=== PATIENT | female | born 1970 | race Caucasian/White ===

== ENCOUNTER → 2016-06-19 | Outpatient (CLI) | payer OTHER ==
[~2016-06-19] MED LIST: AMOX500T PO; ANAS1TAB19 PO; BIOT1CAP8 PO; CETI10TA10 PO; CHOL1000 PO; IBUP-1050 PO; MISCCAP80 PO; OMEG10007 PO; OXYC-57 PO; PSEU30TA20 PO; PSEUCAP67 PO; RIZA5TAB10 PO
--- NOTE | 2016-06-19 15:49 | MAMMOGRAPHY REPORT ---
BILATERAL DIGITAL DIAGNOSTIC MAMMOGRAM TOMOSYNTHESIS WITH CAD AND TARGETED LEFT ULTRASOUND: 06/19/2016 CLINICAL HISTORY: 45-year-old woman with a history of previous benign breast surgeries, with a papil cammy diagnosed at final pathology in 2009, presents with a new palpable lump in the 11:00 left breas t. TECHNIQUE: Bilateral breast tomosynthesis in addition to standard 2D mammography was performed. Curr ent study was also evaluated with a Computer Aided Detection (CAD) system. COMPARISON: Comparison is made to exams dated: 10/20/2014 mammogram, 04/19/2013 mammogram, 09/27/2011 m ammogram - [facility], 05/23/2010 [facility], and 03/10/2008. BREAST COMPOSITION: The tissue of both breasts is heterogeneously dense, which may obscure small ma sses. FINDINGS: Within the right breast, there is a cluster of microcalcifications in the upper outer mid dle one third of the breast measuring 7.6 mm in maximum dimension. These calcifications appear smud gy on the CC view but do not demonstrate layering on the current MLO view. However, spot magnificat ion views from 10/20/2014 are available, which demonstrate tea cupping or layering of most of these microcalcifications on the spot magnification ML view, suggesting benign milk of calcium. This clus ter of microcalcifications has been present dating back to 2012 but was not clearly seen on the 2009 exam, but with the amount of layering on the prior spot magnification view is considered benign. N o new suspicious mass, architectural distortion or cluster of microcalcifications is seen within the right breast. Within the left breast superiorly, there are multiple partially circumscribed and obscured masses. A dry angular skin palpable marker overlies the 11:00 to 12:00 breast, denoting the new palpable mas s. In the area of concern, there is a 16 mm rounded circumscribed mass that is new. Targeted ultra sound was subsequently performed. At least 7 other partially circumscribed masses in the superior l eft breast appear increased comparing to prior available mammograms and therefore ultrasound was per formed throughout the entire left breast. No focal area of architectural distortion or a cluster of new suspicious my calcifications is seen in the left breast. There are scattered and grouped stabl e microcalcifications. Real-time high-resolution ultrasound was performed in the left breast. In the area of new palpable concern pointed out by the patient (11:00 left breast, 6 cm from the nipple) there is a rounded circ umscribed mass with posterior acoustic enhancement. It is mixed anechoic with layering echogenic de bris within, measuring 14.2 x 11.8 x 14.8 mm. This could represent a complicated cyst with layering debris or possibly a cyst with internal hemorrhage. Given its new palpable nature, further evaluat ion with cyst aspiration is recommended to exclude the possibility of a solid component. The left 1 1:00 breast, 5 cm from the nipple, there is a lobulated anechoic cyst with posterior acoustic enhanc ement, measuring 9.9 x 8.0 x 9.2 mm. In the 11:00 left breast, 3 cm from the nipple, there is a lob ulated isoechoic solid-appearing mass that measures 9.8 x 6.1 x 8.7 mm. Another irregular hypoechoi c mass with a few internal cysts is seen in the 11:00 left breast, 2 cm from the nipple, measuring 7 .2 x 5.6 x 6.1 mm. An isoechoic circumscribed solid mass is seen in the 11:00 left breast, 1 cm fro m the nipple, measuring 7.3 x 5.5 x 6.9 mm. Mild increased vascularity is demonstrated. A predomina ntly cystic multilobulated mass is seen in the 12:00 left breast, 4 cm from the nipple, measuring ap proximately 9.7 x 6.5 x 7.8 mm. 2 abutting anechoic simple cysts are seen in the left 12:00 breast, to 7 m from the nipple, measuring 12.1 x 9.0 x 10.1 mm. Another isoechoic to hypoechoic solid mass with mild internal vascularity is seen in the 10:00 left breast, 2 cm from the nipple, measuring 7. 4 x 5.6 x 7.0 mm. A smaller similar appearing hypoechoic solid mass is identified in the 10:00 left breast, 3 cm from the nipple, measuring 3.2 x 2.7 x 2.3 mm. Another isoechoic solid-appearing mass with internal vascularity is identified in the 10:00 left breast, 6 cm from the nipple, with in ane choic crescent, suggesting this represents an intracystic mass. IMPRESSION: ACR BI-RADS CATEGORY 4B: INTERMEDIATE SUSPICION FOR MALIGNANCY, TARGETED ULTRASOUND ACR BI-RADS CATEGORY 4B: INTERMEDIATE SUSPICION FOR MALIGNANCY There are multiple cystic and solid masses within the left superior breast, that are increasing in s ize comparing to prior mammograms. The patient is feeling a new mass in the 11:00 axis that has the sonographic appearance of a [place] located cyst or cyst with internal hemorrhage. Given its interva l development and palpable nature, definitive characterization with ultrasound guided cyst aspiratio n is recommended to exclude an internal solid component. At the time of cyst aspiration, ultrasound guided core needle biopsy is recommended for the probable intracystic mass in the 10:00 left breast , 6 cm from the nipple, with fluid crescent seen along the periphery as well as the largest solid-ap pearing mass in the 11:00 left breast, 3 cm from the nipple. Pending benign pathology results, j carlos d follow the other solid appearing masses in 6 months. These findings could represent papillomatosi s, particularly given the patient had a previous left breast surgical excision for a biopsy-proven p apilloma. These results and recommendations were discussed with the patient at the time of the exam. She tent atively scheduled the left breast cyst aspiration and ultrasound guided core needle biopsy 2 prior to leaving our department. Approximately 10% of breast cancers are not detected with mammography. A negative mammographic repor t should not delay biopsy if a clinically suggestive mass is present. Jocelyn Potter M.D. ay/:06/19/2016 12:35:55 Industrial Cook: Tori Goodman RT(R)(M), [facility] letter sent: Abnormal 4/5 BI-RADS Code: ACR BI-RADS Category 4B: Intermediate Suspicion For Malignancy Ultrasound BI-RADS: AC R BI-RADS Category 4B: Intermediate Suspicion For Malignancy
== END | disposition home or self-care (01) ==
LOC: C.MAMM 10:58
PROVIDERS: ATTEND Obstetrics & Gynecology
DX: N63 Unspecified lump in breast (principal)

== ENCOUNTER → 2016-06-26 | Outpatient (CLI) | payer OTHER ==
--- NOTE | 2016-06-26 09:45 | Discharge Instructions ---
Discharge Instructions Procedure Procedure Date: Jun 26, 2016. Reason for visit: Left Masses Core X2 1 Aspiration. Discharge Discharge Date: Jun 26, 2016. Discharge Diagnosis: post left breast ultrasound guided core biopsy x 2 and cyst aspiration x 1 Instructions Activity Recommendations: Additional Limitations (see below) Return to School/Work: no limitations Recommended Home Diet: No Limitations Provider Instructions: ACTIVITY RECOMMENDATIONS: * No lifting, pushing, pulling or exercising the affected side for three days. RETURN TO SCHOOL/WORK: * You may return to work/school after the procedure, but do not perform any strenuous activities for 24 to 48 hours. MEDICATIONS: * Tylenol (two 325 mg) every four to six hours if needed for mild pain (if not allergic to Tylenol). DIET: * Resume previous diet. SPECIAL CARE INSTRUCTIONS: * Keep biopsy site dry for 24 hours. May shower after 24 hours, but do not soak (bathe) incision. * May remove Tegaderm (plastic patch) tomorrow AFTER showering. * Leave the steri-strips on for one week. Allow the steri-strips to fall off by themselves. If not off after one week, you may remove them. You may place a Bandaid crosswise over the strips, if desired. * Apply ice 10 minutes on and 10 minutes off as needed. * Wear a bra at bedtime to sleep more comfortably for 2-3 days. * Your referring physician should have the results after approximately 5 to 7 business days. * Call for unusual bleeding, fever, drainage, etc or if you have any questions call [phone] during normal business hours or after hours call Dr Potter, . FOLLOW UP VISIT: Follow-up with Referring Physician as scheduled. Allergies Coded Allergies: No Known Allergies (Verified , 06/05/16) Lizabeth Reagan Recommendations: Call your doctor if: * Temperature above 101 degrees * Pain not relieved by pain medicine ordered * There is increased drainage or redness from any incision * You have any unanswered questions or concerns. Your Doctors Instructions noted above were prepared by provider Jocelyn Potter. Patient Signature Section: Patient Instructions Signature Page Lizbet Chavez Patient (or Guardian) Signature/Date: I have read and understand the instructions given to me by my caregivers. Caregiver/RN/Doctor Signature/Date: The above-named patient and/or guardian has received patient instructions on this date. + Original Patient Signature Page (only) stays with chart. Please make copy for patient.
--- NOTE | 2016-06-26 14:54 | MAMMOGRAPHY REPORT ---
ASPIRATION: 06/26/2016 CLINICAL HISTORY: Palpable cyst with internal layering debris level, possibly a cyst that hemorrhage d; patient presents for ultrasound-guided cyst aspiration. Please refer to the report from left breast ultrasound-guided core biopsy performed at the same time for full detail. IMPRESSION: ASPIRATION Please refer to the report from left breast ultrasound-guided core biopsy performed at the same time for full detail. Jocelyn Potter M.D. ay/:06/26/2016 09:46:42 Telecom Coordinator: Lacy CARTER(R)(M), [facility]
--- NOTE | 2016-06-26 14:54 | MAMMOGRAPHY REPORT ---
MULTIPLE ULTRASOUND GUIDED BIOPSIES LEFT BREAST: 06/26/2016 CLINICAL HISTORY: Palpable mass in the 11:00 left breast as well as indeterminate solid-appearing ma sses seen within the left superior breast on ultrasound. Patient presented for ultrasound-guided cy st aspiration of the palpable mass as well as ultrasound guided core biopsy of the largest solid mas s in the 11:00 axis and possible intracystic solid mass in the 10:00 axis. COMPARISON: Comparison is made to exams dated: 06/19/2016 ultrasound, 06/19/2016 mammogram - [facility], 04/19/2013 mammogram, 10/09/2011 mammogram, 09/27/2011 mammogram - [facility], and 05/23/2010 specimen - [facility]. PATIENT CONSENT: The procedure, risks and benefits were discussed with the patient and informed writ ten consent was obtained. Specific risks to this procedure include: bleeding, infection, puncture of adjacent structure, nontarget biopsy, sampling error and medication reaction. PROCEDURE DESCRIPTION: First repeat targeted ultrasound was performed in the 10:00 and 11:00 axes of the left breast. The complicated cyst with internal layering debris level was again identified in the 11:00 axis. Slightly closer to the nipple a lobulated parallel hypoechoic solid mass was seen. Also in the 10:00 breast a probable intracystic solid mass is again seen. All of these masses are the intended targets for ultrasound-guided cyst aspiration and core needle biopsy 2. A time out was performed and the left breast was agreed as the site of biopsy. The skin was prepped and draped in the usual sterile fashion. First the cystic-appearing palpable mass in the 11:[address] was identified. 1% buffered lidocaine without epinephrine was administered as local anesthesia. A 22-gauge needle was advanced into the mass and aspiration was performed. Brownish old blood ting ed fluid was aspirated and sent to the pathology department for cytologic analysis. After aspiratio n there is minimal residual hypoechoic tissue at the site of aspiration, likely representing an infl alberto wall of the cyst. Then the solid lobulated mass in the 11:00 left breast was identified and targeted for biopsy. Anil tional 1% buffered lidocaine with and without epinephrine was administered as local anesthesia. A s mall incision was made in the skin. Through the incision, using a 14-gauge achieve biopsy device, 3 samples were obtained. A ribbon-shaped metallic biopsy marker was placed at the site of this mass. Hemostasis was achieved after manual compression. Then the probable intracystic solid mass in the 10:00 left breast was identified and chosen as targe t for biopsy. Additional subcutaneous and intraparenchymal 1% buffered lidocaine with and without e pinephrine was administered as local anesthesia. A skin incision was made. Through the incision, 3 samples were taken with a 14 gauge Achieve biopsy device. A wing shaped metallic marker was placed a t the biopsy site. Hemostasis was achieved after manual compression. The patient tolerated the proce dure well and there was no immediate complication. All of the samples were sent to the pathology de partment in appropriately labeled containers. Post procedure left CC, XCCM and ML views were obtained. There is decreased density but persistent faint rim of the aspirated cyst with probable internal hemorrhage that was palpable in the 11:00 lef t breast. The ribbon-shaped metallic biopsy marker is identified in the middle one third of the lef t upper outer quadrant. However, the wing shaped metallic biopsy marker is not visualized, likely d ue to to the far medial and far superior location. No significant postbiopsy hematoma is identified . Numerous other circumscribed masses are scattered throughout the superior left breast. IMPRESSION: ULTRASOUND GUIDED BIOPSY Status post ultrasound-guided cyst aspiration of a palpable cystic mass in the 11:00 left breast, an d status post ultrasound-guided core biopsy 2 in the 10:00 and 11:00 left breast, with biopsy marke rs placed at each site. Pending benign pathology results, follow-up left mammography and repeat ultrasound is recommended to ensure stability of numerous other similar appearing solid masses as well as other cysts. Jocelyn Potter M.D. ay/:06/26/2016 12:39:47 Circuit Tester: Lacy LUIS)(Jackie), [facility]
--- NOTE | 2016-06-26 14:56 | MAMMOGRAPHY REPORT ---
UNILATERAL LEFT DIGITAL DIAGNOSTIC MAMMOGRAM: 06/26/2016 CLINICAL HISTORY: Status post left breast cyst aspiration and ultrasound-guided core needle biopsy 2. Please refer to the report from left breast ultrasound guided core biopsy performed at the same time for full detail. IMPRESSION: POST PROCEDURE IMAGING FOR MARKER PLACEMENT Please refer to the report from left breast ultrasound guided core biopsy performed at the same time for full detail. Approximately 10% of breast cancers are not detected with mammography. A negative mammographic repor t should not delay biopsy if a clinically suggestive mass is present. Jocelyn Potter M.D. ay/:06/26/2016 12:27:55 Manager Animal: Lacy CARTER(R)(M), [facility] BI-RADS Code: Post Procedure Imaging For Marker Placement
== END | disposition home or self-care (01) ==
LOC: C.MAMM 08:38
PROVIDERS: ATTEND Obstetrics & Gynecology
DX: D05.12 Intraductal carcinoma in situ of left breast (principal)

== ENCOUNTER → 2016-08-31 | Outpatient (CLI) | payer OTHER ==
--- NOTE | 2016-08-31 14:09 | DIAGNOSTIC IMAGING REPORT ---
LEFT BREAST LYMPHOSCINTIGRAPHY CLINICAL HISTORY: Left breast cancer. COMPARISON STUDY: Diagnostic left mammogram June 26, 2016. PROCEDURE: The patient presents today for left breast lymphoscintigraphy. The procedure, risks and benefits were discussed with the patient and informed consent was obtained. The procedure was performed by Dr. Taveras following a timeout. Skin of the upper left breast was prepped. A total of 0.564 mCi of Lymphoseek was injected in 5 intradermal aliquots within the upper outer quadrant of the left breast, as directed, at 1:35 PM on August 31, 2016. The patient tolerated the procedure well and no immediate complications were evident. No imaging was requested at this time. IMPRESSION: Left breast lymphoscintigraphy. Electronically signed by: Albaro Taveras M.D. 08/31/2016 2:07 PM Dictated Date/Time: 08/31/2016 2:06 PM
== END | disposition home or self-care (01) ==
LOC: C.NUCL 13:23
PROVIDERS: ATTEND Surgery
DX: C50.912 Malignant neoplasm of unspecified site of left female breast (principal)

== ENCOUNTER → 2016-12-21 | Outpatient (CLI) | payer OTHER ==
[~2016-12-21] MED LIST changes: -AMOX500T PO; -OXYC-57 PO; -PSEU30TA20 PO; -PSEUCAP67 PO
== END | disposition home or self-care (01) ==
LOC: C.MAMM 15:41
PROVIDERS: ATTEND Internal Medicine Hematology & Oncology
DX: C50.212 Malignant neoplasm of upper-inner quadrant of left female breast (principal); M85.851 Other specified disorders of bone density and structure, right thigh; M85.852 Other specified disorders of bone density and structure, left thigh

== ENCOUNTER → 2017-01-09 | Outpatient (CLI) | payer OTHER ==
--- NOTE | 2017-01-09 13:32 | MAMMOGRAPHY REPORT ---
UNILATERAL LEFT DIGITAL DIAGNOSTIC MAMMOGRAM TOMOSYNTHESIS WITH CAD AND TARGETED LEFT ULTRASOUND: 12/17 CLINICAL HISTORY: 46-year-old woman presents to establish new baseline after treatment for left breas t cancer. She underwent breast conservation therapy with a lumpectomy and radiation. TECHNIQUE: Left CC and MLO 2-D and tomosynthesis images, spot magnification left CC and ML views were obtained. Current study was also evaluated with a Computer Aided Detection (CAD) system. COMPARISON: Comparison is made to exams dated: 06/26/2016 mammogram, 06/19/2016 mammogram - [facility], 10/20/2014 mammogram, 04/19/2013 mammogram, 10/09/2011 mammogram, and 09/27/2011 mammogr am - [facility]. BREAST COMPOSITION: The tissue of the left breast is heterogeneously dense, which may obscure small masses. FINDINGS: There is focal asymmetry, expected architectural distortion and 6 surgical clips in the up per inner middle and posterior left breast, denoting the surgical bed. None of the previously observ ed multiple masses in the superior left breast are currently seen, presumably all surgically excised. However, a wing-shaped metallic biopsy marker clip remains in the upper inner quadrant of the left breast, only visualized on the spot magnification views. Further evaluation with ultrasound was perf ormed to assess for this biopsy marker clip. Additional ultrasound was also performed throughout the remainder of the left breast to assess for any residual masses. There is no unexpected architectura l distortion or suspicious microcalcifications. Real-time high-resolution ultrasound was performed throughout the left breast with particular attenti on to the 10:00 and 11:00 axes in the area of previously biopsied mass in the 10:00 breast in which t he wing-shaped metallic biopsy marker clip was placed. This yielded a papillary lesion with ADH duri ng ultrasound-guided core biopsy. However, no discrete solid or cystic mass is seen throughout the l eft breast on ultrasound. A small postsurgical seroma and/or evolving hematoma is seen at the surgic al site in the 11:00 axis. IMPRESSION: ACR BI-RADS CATEGORY 4: SUSPICIOUS, TARGETED ULTRASOUND ACR BI-RADS CATEGORY 4: SUSPICIO US 1. There are expected post-therapeutic changes in the left breast. 2. A wing-shaped metallic biopsy marker clip remains in the left breast, and this originally denoted a site of biopsy-proven atypia within a papilloma. Upon further evaluation with ultrasound and also mammographically there is no evidence of a residual mass and the biopsy marker clip is not visible o n ultrasound. Ideally, mammographic guided needle localization and excision of this clip would ensur e definitively on final pathology that there is no residual atypia residing at this site, even though the mass has either been removed or resolved after treatment. Otherwise, can continue to follow wit h imaging to ensure no new mass develops here. Would also then consider additional surveillance with breast MRI in addition to mammograms and ultrasound. 3. Patient is due for bilateral mammography in 6 months. These results and recommendations were discussed with the patient at the time of the exam. Approximately 10% of breast cancers are not detected with mammography. A negative mammographic report should not delay biopsy if a clinically suggestive mass is present. Jocelyn Potter M.D. ay/:01/09/2017 12:21:12 Agricultural Lender: Tori CARTER(Alessandra)(M), [facility] letter sent: Abnormal 4/5 BI-RADS Code: ACR BI-RADS Category 4: Suspicious Ultrasound BI-RADS: ACR BI-RADS Category 4: Suspici ous
== END | disposition home or self-care (01) ==
LOC: C.MAMM 09:31
PROVIDERS: ATTEND Surgery
DX: Z08 Encounter for follow-up examination after completed treatment for malignant neoplasm (principal); Z85.3 Personal history of malignant neoplasm of breast

== ENCOUNTER → 2017-01-09 | Outpatient (CLI) | payer OTHER ==
[2017-01-09 15:27] VITALS: BP 106/59; PULSE 76; TEMP 36.9; O2SAT 96
--- NOTE | 2017-01-09 16:17 | Radiation Oncology Follow-Up ---
Radiation Oncology Follow-Up Date of Visit Jan 09, 2017. (Helen Clinton PA-C) Reason For Visit One-month follow-up and cancer survivorship care plan (Helen Clinton PA-C) Radiation Completion Date 12/04/16 (Helen Clinton PA-C) Diagnosis (1) Breast cancer Status: Acute Onset Date: 07/06/2016 Histology Subtype: ductal Stage: l Permanent Comment: Status post benign left breast biopsy 03/11/2004 Status post benign left breast biopsy 03/10/2008 Status post benign left breast biopsy 05/23/2010 Self detected left breast mass May 2016 Status post ultrasound-guided biopsy 06/26/2016 revealing DCIS Status post lumpectomy 07/06/2016 revealing invasive mammary ductal carcinoma grade 1 Estrogen receptor positive, progesterone receptor positive, HER-2/isabelle negative Status post sentinel lymph node biopsy 09/01/2016 Stage pTIa [id number] Last Edited By: Helen Clinton on Sep 20, 2016 10:31 (Helen Clinton PA-C) History of Present Illness Ms. Valenzuela is a 46-year-old female with a previous history of multiple negative biopsies in 2003, 2007 and 2009 that have only revealed intraductal papilloma with atypical ductal hyperplasia. In May 2016, the patient self palpated a left breast mass. The patient did have a bilateral diagnostic mammogram with tomosynthesis as well as a left breast ultrasound on 06/19/2016 which revealed: "There are multiple cystic and solid masses within the left superior breast, that are increasing in size comparing to prior mammograms. The patient is feeling a new mass in the 11:00 axis that has the sonographic appearance of a [place] located cyst or cyst with internal hemorrhage. Given its interval development and palpable nature, definitive characterization with ultrasound guided cyst aspiration is recommended to exclude an internal solid component. At the time of cyst aspiration, ultrasound guided core needle biopsy is recommended for the probable intracystic mass in the 10:00 left breast , 6 cm from the nipple, with fluid crescent seen along the periphery as well as the largest solid-appearing mass in the 11:00 left breast, 3 cm from the nipple. Pending benign pathology results, could follow the other solid appearing masses in 6 months. These findings could represent papillomatosis, particularly given the patient had a previous left breast surgical excision for a biopsy-proven papilloma. These results and recommendations were discussed with the patient at the time of the exam. She tentatively scheduled the left breast cyst aspiration and ultrasound guided core needle biopsy 2 prior to leaving our department. Approximately 10% of breast cancers are not detected with mammography. A negative mammographic report should not delay biopsy if a clinically suggestive mass is present." She underwent a ultrasound-guided biopsy of the left breast mass on 06/26/2016 which confirmed low-grade ductal carcinoma in situ that is estrogen receptor positive and progesterone receptor positive. The patient was subsequently seen by Dr. Joao Bustamante who discussed treatment options including a mastectomy or lumpectomy followed by adjuvant radiation therapy with consideration of chemotherapy. The patient ultimately elected for a lumpectomy and underwent the procedure on 07/06/2016 which revealed invasive mammary carcinoma that was grade 1 of 3; there is no evidence of ductal carcinoma in situ or lymphovascular space invasion and the tumor was estrogen receptor positive, progesterone receptor positive and HER-2 negative. The margins were negative and the tumor measured 2 mm in the greatest dimension. Dr. Rogel to the patient back to the operating room on 09/01/2016 for a sentinel lymph node biopsy and both sentinel lymph nodes were negative for metastatic carcinoma. The patient did also have genetic testing for BRCA mutation which was negative. The patient was seen in consultation by Dr. Tate Corral for medical oncology who recommended consideration for adjuvant radiation therapy and anti-hormonal therapy for 5-10 years. We are now seeing the patient in consultation discuss the role of radiation therapy. She was treated with conventional radiation therapy. Her treatment was completed 12/04/2016. She received 6640 cG (Helen Clinton PA-C) Interim History She has been doing well over the past month. The skin irritation resolved without difficulty. She denies any pain or discomfort in the breast. No discomfort of the chest wall. She has noticed no change in the axilla. She has seen Dr. Corral and was started on Arimidex. She does have cause hot flashes. She is taking the recommended peppermint tea and vitamin E. She denies joint pain or discomfort. Mammogram was ordered and completed on 2016. The mammogram revealed expected post-therapeutic changes in the breast. He wing shaped metallic biopsy marker clip remains in left breast, and this originally did noted a site of biopsy proven atypia with a papilloma. Upon further evaluation with ultrasound and also mammographically there is no evidence of residual mass and the biopsy marker clip is not visible on the ultrasound. Ideally mammographic guided needle localization and excision of this clip would ensure definitively on final pathology that there is no residual atypia residing at this site, even though the mass has either been removed or resolved after therapy. Otherwise can continue to follow with imaging to ensure no new masses develop here. We will also consider additional surveillance with breast MRI in addition to the mammogram and ultrasound. She' ll be due for bilateral mammography in 6 months. (Helen Clinton PA-C) Allergies Coded Allergies: No Known Allergies (Verified , 06/05/16) Home Medications Scheduled Anastrozole (Arimidex), 1 TAB PO DAILY Biotin (Biotin), 1 CAP PO DAILY Cetirizine Hcl (Zyrtec), 1 TAB PO BID Cholecalciferol (Vitamin D3), 1 TAB PO BID Fish Oil ([place]-3), 2 CAP PO BID Probiotic Product (Probiotic), 1 CAP PO DAILY Scheduled PRN Ibuprofen (Advil), 200-600 MG PO Q4H PRN for Pain Rizatriptan Benzoate (Maxalt), 5 MG PO BID PRN for Migraine Review of Systems Gastrointestinal: Symptoms: WNL Oral: Symptoms: No Problems Respiratory: Symptoms: WNL Urinary: Symptoms: WNL Skin: Symptoms: Faint Erythema Other Skin Symptoms: slightly pink (Helen Clinton PA-C) Physical Exam Vital Signs Date Time Temp Pulse Resp B/P (MAP) Pulse Ox O2 Delivery O2 Flow Rate FiO2 01/09/17 15:27 36.9 76 18 106/59 96 Pain: Patient Pain Scale: 0 - 10 Initial Pain Intensity: 0.0 Fatigue: None General Appearance: no apparent distress Eyes: normal inspection, EOMI ENT: normal ENT inspection, hearing grossly normal Neck: no adenopathy, thyroid normal Respiratory/Chest: lungs clear, no respiratory distress, no accessory muscle use Breast: Breast examination reveals very slight hyperpigmentation of the left breast. There are no masses or tenderness and no axillary adenopathy. There are no skin retractions or nipple changes. She has no axillary adenopathy. Using the [place] score cosmesis she has a in excellent outcome. The right breast showed no masses or tenderness and no axillary adenopathy. Cardiovascular: regular rate, rhythm, no gallop, no murmur Abdomen: non tender, soft Extremities: no pedal edema Neurologic/Psychiatric: normal mood/affect Skin: warm/dry Lymphatic: no adenopathy (Helen Clinton PA-C) Additional Studies Patient: MARC VALENZUELA [facility] Rec: [id number] Address1: [address] Address2: Acct ID: [id number] Date: 1970 Sex: F Ref Phy: Joao Bustamante M.D. Att Phy: Joao Bustamante M.D. Kirsten Phy: No Doctor, Assigned Inter Phy: Jocelyn Potter MD [facility] Zip: [place] [address] SC: .MAMM Report #: [id number] Evaluator Transfer Students: THOMAS Diagnosis: 6 MONTH F/U S/P LEFT BREAST SURGERY BASELINE Service Date: 01/09/17 MNE: [id number] Ordering Dr: Joao Bustamante M.D. CC: Joao Bustamante M.D. CONF: DICTATED BY: Jocelyn Potter MD MAMMOGRAPHY REPORT UNILATERAL LEFT DIGITAL DIAGNOSTIC MAMMOGRAM TOMOSYNTHESIS WITH CAD AND TARGETED LEFT ULTRASOUND: 01/09/2017 CLINICAL HISTORY: 46-year-old woman presents to establish new baseline after treatment for left breast cancer. She underwent breast conservation therapy with a lumpectomy and radiation. TECHNIQUE: Left CC and MLO 2-D and tomosynthesis images, spot magnification left CC and ML views were obtained. Current study was also evaluated with a Computer Aided Detection (CAD) system. COMPARISON: Comparison is made to exams dated: 06/26/2016 mammogram, 06/19/2016 mammogram - [facility], 10/20/2014 mammogram, 04/19/2013 mammogram, 10/09/2011 mammogram, and 09/27/2011 mammogram - [facility]. BREAST COMPOSITION: The tissue of the left breast is heterogeneously dense, which may obscure small masses. FINDINGS: There is focal asymmetry, expected architectural distortion and 6 surgical clips in the upper inner middle and posterior left breast, denoting the surgical bed. None of the previously observed multiple masses in the superior left breast are currently seen, presumably all surgically excised. However, a wing-shaped metallic biopsy marker clip remains in the upper inner quadrant of the left breast, only visualized on the spot magnification views. Further evaluation with ultrasound was performed to assess for this biopsy marker clip. Additional ultrasound was also performed throughout the remainder of the left breast to assess for any residual masses. There is no unexpected architectural distortion or suspicious microcalcifications. Real-time high-resolution ultrasound was performed throughout the left breast with particular attention to the 10:00 and 11:00 axes in the area of previously biopsied mass in the 10:00 breast in which the wing-shaped metallic biopsy marker clip was placed. This yielded a papillary lesion with ADH during ultrasound-guided core biopsy. However, no discrete solid or cystic mass is seen throughout the left breast on ultrasound. A small postsurgical seroma and/ or evolving hematoma is seen at the surgical site in the 11:00 axis. IMPRESSION: ACR BI-RADS CATEGORY 4: SUSPICIOUS, TARGETED ULTRASOUND ACR BI- RADS CATEGORY 4: SUSPICIOUS 1. There are expected post-therapeutic changes in the left breast. 2. A wing-shaped metallic biopsy marker clip remains in the left breast, and this originally denoted a site of biopsy-proven atypia within a papilloma. Upon further evaluation with ultrasound and also mammographically there is no evidence of a residual mass and the biopsy marker clip is not visible on ultrasound. Ideally, mammographic guided needle localization and excision of this clip would ensure definitively on final pathology that there is no residual atypia residing at this site, even though the mass has either been removed or resolved after treatment. Otherwise, can continue to follow with imaging to ensure no new mass develops here. Would also then consider additional surveillance with breast MRI in addition to mammograms and ultrasound. 3. Patient is due for bilateral mammography in 6 months. These results and recommendations were discussed with the patient at the time of the exam. Approximately 10% of breast cancers are not detected with mammography. A negative mammographic report should not delay biopsy if a clinically suggestive mass is present. Jocelyn Potter M.D. ay/:01/09/2017 12:21:12 Yard Spotter: Tori LUIS)(Jackie), [facility] letter sent: Abnormal 4/5 BI-RADS Code: ACR BI-RADS Category 4: Suspicious Ultrasound BI-RADS: ACR BI- RADS Category 4: Suspicious Dictated by: Jocelyn Potter MD Signed by: Jocelyn Potter MD (Helen Clinton PA-C) Assessment & Plan Plan: The mammogram results had been given to the patient by Dr. Potter. We reviewed these findings. She has just recently seen Dr. Bustamante. I've asked her to call his office to have him review the information to determine if she needs to be seen in his office and would need any further procedure with removal of biopsy clip. The mammogram had been given a BI-RADS Category 4. She 'll continue on the Arimidex. Continue follow-up with Dr. Corral and her primary care physician. She is also seen today by Dr. Quigley. We asked her to return to our office in 6 months. Today a cancer survivorship care plan was reviewed and a copy of the document was given to the patient. She may call our office if she has any questions or concerns in the interim. (Helen Clinton PA-C) I agree with note created by Hleen Clinton PA-C. I reviewed the patient's chart and information with her. I have examined and evaluated the patient. I reviewed relevant clinical information and answered the patient's and/or family' s questions. (Veeral. Quigley MD) Total Time In Follow-Up I spent 20 minutes speaking to the patient performing examination. I spent 20 minutes reviewing information, preparing the survivorship document, and completing this note. (Helen Clinton PA-C) I spent 15 minutes examining and counseling the patient. (Veeral. Quigley MD) Copy To Joao Bustamante M.D.; Tate Corral MD; Suellen Schultz MD Problem Qualifiers (1) Breast cancer: Breast location: lower inner quadrant of breast Estrogen receptor status: positive Patient sex: female Laterality: left Qualified Codes: C50.312 - Malignant neoplasm of lower-inner quadrant of left female breast; Z17.0 - Estrogen receptor positive status [ER+]
== END | disposition home or self-care (01) ==
LOC: C.ONC 15:15
PROVIDERS: ATTEND Physician Assistant Medical
DX: Z08 Encounter for follow-up examination after completed treatment for malignant neoplasm (principal); Z92.3 Personal history of irradiation; Z85.3 Personal history of malignant neoplasm of breast

== ENCOUNTER → 2017-03-22 | Outpatient (CLI) | payer OTHER ==
[2017-03-22 09:41] LABS: BASO % 1.4 %; BASO ABS # 0.05 K/uL (0-0.2); COMPLETE YES; EOS % 3.6 %; HEMATOCRIT 42.9 % (37-47); IG% 0.3 %; LYMPH % 29.9 %; LYMPH ABS # 1.09 K/uL (1.2-3.4); MEAN CELL VOLUME 86.5 fL (80-100); MEAN CORPUSCULAR HEMOGLOBIN 29.6 pg (25-34); MEAN CORPUSCULAR HGB CONC 34.3 g/dl (32-36); MONO % 10.1 %; NEUT % 54.7 %; PLATELET COUNT 237 K/uL (130-400); RED BLOOD COUNT 4.96 M/uL (4.2-5.4); WHITE BLOOD COUNT 3.65 K/uL (4.8-10.8)
[2017-03-22 10:46] LABS: ALB/GLOB RATIO 1.2 (0.9-2); ALKALINE PHOSPHATASE 88 U/L (45-117); ALT/SGPT 24 U/L (12-78); AST/SGOT 22 U/L (15-37); BLOOD UREA NITROGEN 17 mg/dl (7-18); BUN/CREATININE RATIO 18.3 (10-20); CALCIUM 9.4 mg/dl (8.5-10.1); CARBON DIOXIDE 30 mmol/L (21-32); CHLORIDE 107 mmol/L (98-107); GLUCOSE 86 mg/dl (70-99); POTASSIUM 3.8 mmol/L (3.5-5.1); SODIUM 143 mmol/L (136-145)
== END | disposition home or self-care (01) ==
LOC: C.LAB1850 08:21
PROVIDERS: ATTEND Internal Medicine Hematology & Oncology
DX: C50.212 Malignant neoplasm of upper-inner quadrant of left female breast (principal)

== ENCOUNTER → 2017-06-28 | Outpatient (CLI) | payer OTHER ==
[2017-06-28 14:12] VITALS: BP 120/81; PULSE 72; TEMP 36.7; O2SAT 98
--- NOTE | 2017-06-28 15:59 | Radiation Oncology Follow-Up ---
Radiation Oncology Follow-Up Date of Visit Jun 28, 2017. Reason For Visit 6 month follow-up Radiation Completion Date 12/04/16 Diagnosis (1) Breast cancer Status: Acute Onset Date: 07/06/2016 Histology Subtype: ductal Stage: l Permanent Comment: Status post benign left breast biopsy 03/11/2004 Status post benign left breast biopsy 03/10/2008 Status post benign left breast biopsy 05/23/2010 Self detected left breast mass May 2016 Status post ultrasound-guided biopsy 06/26/2016 revealing DCIS Status post lumpectomy 07/06/2016 revealing invasive mammary ductal carcinoma grade 1 Estrogen receptor positive, progesterone receptor positive, HER-2/isabelle negative Status post sentinel lymph node biopsy 09/01/2016 Stage pTIa [id number] Status post completion of radiation therapy 12/04/2016. She received 6640 cGy. Last Edited By: Helen Clinton on Jun 28, 2017 15:53 History of Present Illness Ms. Valenzuela has a previous history of multiple negative biopsies in 2003, 2007 and 2009 that have only revealed intraductal papilloma with atypical ductal hyperplasia. In May 2016, the patient self palpated a left breast mass. The patient did have a bilateral diagnostic mammogram with tomosynthesis as well as a left breast ultrasound on 06/19/2016 which revealed: "There are multiple cystic and solid masses within the left superior breast, that are increasing in size comparing to prior mammograms. The patient is feeling a new mass in the 11:00 axis that has the sonographic appearance of a [place] located cyst or cyst with internal hemorrhage. Given its interval development and palpable nature, definitive characterization with ultrasound guided cyst aspiration is recommended to exclude an internal solid component. At the time of cyst aspiration, ultrasound guided core needle biopsy is recommended for the probable intracystic mass in the 10:00 left breast, 6 cm from the nipple, with fluid crescent seen along the periphery as well as the largest solid-appearing mass in the 11:00 left breast, 3 cm from the nipple. Pending benign pathology results, could follow the other solid appearing masses in 6 months. These findings could represent papillomatosis, particularly given the patient had a previous left breast surgical excision for a biopsy-proven papilloma. These results and recommendations were discussed with the patient at the time of the exam. She tentatively scheduled the left breast cyst aspiration and ultrasound guided core needle biopsy 2 prior to leaving our department. Approximately 10% of breast cancers are not detected with mammography. A negative mammographic report should not delay biopsy if a clinically suggestive mass is present." She underwent a ultrasound-guided biopsy of the left breast mass on 06/26/2016 which confirmed low-grade ductal carcinoma in situ that is estrogen receptor positive and progesterone receptor positive. The patient was subsequently seen by Dr. Joao Bustamante who discussed treatment options including a mastectomy or lumpectomy followed by adjuvant radiation therapy with consideration of chemotherapy. The patient ultimately elected for a lumpectomy and underwent the procedure on 07/06/2016 which revealed invasive mammary carcinoma that was grade 1 of 3; there is no evidence of ductal carcinoma in situ or lymphovascular space invasion and the tumor was estrogen receptor positive, progesterone receptor positive and HER-2 negative. The margins were negative and the tumor measured 2 mm in the greatest dimension. Dr. Rogel to the patient back to the operating room on 09/01/2016 for a sentinel lymph node biopsy and both sentinel lymph nodes were negative for metastatic carcinoma. The patient did also have genetic testing for BRCA mutation which was negative. The patient was seen in consultation by Dr. Tate Corral for medical oncology who recommended consideration for adjuvant radiation therapy and anti-hormonal therapy for 5-10 years. We are now seeing the patient in consultation discuss the role of radiation therapy. She was treated with conventional radiation therapy. Her treatment was completed 12/04/2016. She received 6640 cG Interim History She has noted no changes to her breast. She is found no masses or tenderness. She has a noted no axillary adenopathy. She has noticed a thin area of cording in the left axilla. She found this recently. There is very mild tenderness if the areas palpated. There is been no redness or swelling. The thin line extends to the upper arm. In December she had recheck mammogram that revealed the retained clip. This was excised 03/09/2017. This revealed benign scar tissue. She does have hot flashes in association with the antiestrogen therapy. Allergies Coded Allergies: No Known Allergies (Verified , 06/05/16) Home Medications Scheduled Anastrozole (Arimidex), 1 TAB PO DAILY Biotin (Biotin), 1 CAP PO DAILY Cetirizine Hcl (Zyrtec), 1 TAB PO DAILY Cholecalciferol (Vitamin D3), 1 TAB PO BID Fish Oil ([place]-3), 2 CAP PO BID Probiotic Product (Probiotic), 1 CAP PO DAILY Scheduled PRN Ibuprofen (Advil), 200-600 MG PO Q4H PRN for Pain Rizatriptan Benzoate (Maxalt), 5 MG PO BID PRN for Migraine Review of Systems Gastrointestinal: Symptoms: WNL Oral: Symptoms: No Problems Respiratory: Symptoms: WNL Urinary: Symptoms: WNL Skin: Symptoms: No Problems Breast: Right Upper Arm Measurement: 25.8 Right Mid Arm Measurement: 21.8 Right Wrist Measurement: 14.5 Left Upper Arm Measurement: 25.5 Left Mid Arm Measurement: 21.5 Left Wrist Measurement: 15.0 Arm Dominence: Right Physical Exam Vital Signs Date Time Temp Pulse Resp B/P (MAP) Pulse Ox O2 Delivery O2 Flow Rate FiO2 06/28/17 14:12 36.7 72 12 120/81 98 Fatigue: None General Appearance: no apparent distress Eyes: normal inspection, EOMI ENT: normal ENT inspection, hearing grossly normal Neck: no adenopathy, thyroid normal Respiratory/Chest: lungs clear, no respiratory distress, no accessory muscle use Breast: Breast examination reveals well-healed incisions of the left breast. There are no masses or tenderness no axillary adenopathy. There is a thin line of cording noted in the axilla. There is no erythema or edema. Minimal tenderness to palpation. Using the Vidalia score cosmesis she has a excellent outcome. The right breast showed no masses or tenderness and no axillary adenopathy. Cardiovascular: regular rate, rhythm, no gallop, no murmur Extremities: + pertinent finding (there has been some difficulty with range of motion of the left shoulder) Neurologic/Psychiatric: no motor/sensory deficits, alert, normal mood/affect Skin: warm/dry Pain Management Patient Reports Pain: No Pain Management Plan She has had minimal discomfort that does not require pain management. Laboratory Laboratory Results: not applicable Pathology Pathology Results: not applicable Pathology Comments [facility] SURGICAL PATHOLOGY REPORT Name MARC VALENZUELA Case: [id number] SURGICAL PATHOLOGY REPORT Page [address] [place] [address] Ankur Lockhart M.D. pigskin trimmer PATHOLOGY REPORT SURGICAL PATHOLOGY REPORT Page 1 of 1 Name MARC VALENZUELA Age/Sex 46/F Location: [facility] MR# [id number] : 1970 /Bed Physician: Joao Bustamante M.D. Case: [id number] Received 03/09/17 Specimen Date 03/08/17 CLINICAL HISTORY History of left breast cancer GROSS DESCRIPTION LEFT BREAST EXCISION The specimen is received in a container labeled as left breast excision with patient name Marc Valenzuela. The specimen consists of a 2.5 x 1.7 x 1 cm fragment of fibrofatty tissue. A localization needle is present within the fragment. The specimen radiograph shows a wing-shaped clip near the hooked portion of the localization needle with this region circled. Two staple-like clips are noted closer to the tip of the localization needle. This region is not circled. Sectioning reveals an admixture of grayish, rubbery tissue and soft, fatty tissue. The majority of the fibrous tissue is aggregate in the region of the staple-like clips. In this region a slit-like space is noted extending to the surface of the fragment. No firm or gritty tissue is noted. The region of the wing-shaped clip also includes a small amount of grayish, softer, though somewhat rubbery tissue. This is not as dense or hyaline as that of the other end. No firm or gritty tissue is noted. The specimen margins are inked. The specimen is serially sectioned and entirely submitted proceeding from the end at the tip of the localization needle in nine cassettes with 1 and 9 representing en face sections of the ends of the specimen and 7 and 8 representing the region of the wing-shaped clip. The specimen is received in formalin without indication as to time of fixation. SH/mas FINAL DIAGNOSIS BREAST, LEFT, NEEDLE LOCALIZED EXCISION: 1. NO RESIDUAL CARCINOMA IDENTIFIED. 2. PREVIOUS EXCISION SITE FIBROSIS, FOREIGN BODY GIANT CELL REACTION, FAT NECROSIS, AND CHRONIC INFLAMMATION NOTED. 3. RARE CLUSTERED AREAS OF MICROCALCIFICATION NOTED. /mas COPIES TO Joao Bustamante M.D. [address] [place] [address] Drive [address] [place] [address] [facility], ([facility] , JanJan hu PATHOLOGY (B[facility]) , Signed: <signature on file> 03/12/17 Ankur Lockhart M.D. Imaging Imaging Studies: were reviewed, and pertinent findings noted below Imaging Comments Patient: MARC VALENZUELA [facility] Rec: [id number] Address1: [address]elle RUIZ Address2: Acct ID: [id number] Date: 1970 Sex: F Ref Phy: Joao Bustamante M.D. Att Phy: Joao Bustamante M.D. Kirsten Phy: No Doctor, Assigned Inter Phy: Jocelyn Potter MD [facility] Zip: [place] [address] SC: C.MAMM Report #: [id number] Cst: THOMAS Diagnosis: 6 MONTH F/U S/P LEFT BREAST SURGERY BASELINE Service Date: 01/09/17 MNE: [id number] Ordering Dr: Jaoo Bustamante M.D. CC: Joao Bustamante M.D. CONF: DICTATED BY: Jocelyn Potter MD MAMMOGRAPHY REPORT UNILATERAL LEFT DIGITAL DIAGNOSTIC MAMMOGRAM TOMOSYNTHESIS WITH CAD AND TARGETED LEFT ULTRASOUND: 01/09/2017 CLINICAL HISTORY: 46-year-old woman presents to establish new baseline after treatment for left breast cancer. She underwent breast conservation therapy with a lumpectomy and radiation. TECHNIQUE: Left CC and MLO 2-D and tomosynthesis images, spot magnification left CC and ML views were obtained. Current study was also evaluated with a Computer Aided Detection (CAD) system. COMPARISON: Comparison is made to exams dated: 06/26/2016 mammogram, 06/19/2016 mammogram - [facility], 10/20/2014 mammogram, 04/19/2013 mammogram, 10/09/2011 mammogram, and 09/27/2011 mammogram - [facility]. BREAST COMPOSITION: The tissue of the left breast is heterogeneously dense, which may obscure small masses. FINDINGS: There is focal asymmetry, expected architectural distortion and 6 surgical clips in the upper inner middle and posterior left breast, denoting the surgical bed. None of the previously observed multiple masses in the superior left breast are currently seen, presumably all surgically excised. However, a wing-shaped metallic biopsy marker clip remains in the upper inner quadrant of the left breast, only visualized on the spot magnification views. Further evaluation with ultrasound was performed to assess for this biopsy marker clip. Additional ultrasound was also performed throughout the remainder of the left breast to assess for any residual masses. There is no unexpected architectural distortion or suspicious microcalcifications. Real-time high-resolution ultrasound was performed throughout the left breast with particular attention to the 10:00 and 11:00 axes in the area of previously biopsied mass in the 10:00 breast in which the wing-shaped metallic biopsy marker clip was placed. This yielded a papillary lesion with ADH during ultrasound-guided core biopsy. However, no discrete solid or cystic mass is seen throughout the left breast on ultrasound. A small postsurgical seroma and/ or evolving hematoma is seen at the surgical site in the 11:00 axis. IMPRESSION: ACR BI-RADS CATEGORY 4: SUSPICIOUS, TARGETED ULTRASOUND ACR BI- RADS CATEGORY 4: SUSPICIOUS 1. There are expected post-therapeutic changes in the left breast. 2. A wing-shaped metallic biopsy marker clip remains in the left breast, and this originally denoted a site of biopsy-proven atypia within a papilloma. Upon further evaluation with ultrasound and also mammographically there is no evidence of a residual mass and the biopsy marker clip is not visible on ultrasound. Ideally, mammographic guided needle localization and excision of this clip would ensure definitively on final pathology that there is no residual atypia residing at this site, even though the mass has either been removed or resolved after treatment. Otherwise, can continue to follow with imaging to ensure no new mass develops here. Would also then consider additional surveillance with breast MRI in addition to mammograms and ultrasound. 3. Patient is due for bilateral mammography in 6 months. These results and recommendations were discussed with the patient at the time of the exam. Approximately 10% of breast cancers are not detected with mammography. A negative mammographic report should not delay biopsy if a clinically suggestive mass is present. Jocelyn Potter M.D. ay/:01/09/2017 12:21:12 Research Biologist: Tori LUIS)(M), [facility] letter sent: Abnormal 4/5 BI-RADS Code: ACR BI-RADS Category 4: Suspicious Ultrasound BI-RADS: ACR BI- RADS Category 4: Suspicious Dictated by: Jocelyn Potter MD Signed by: Jocelyn Potter MD Assessment & Plan Plan: Continue scheduled mammography. Continue follow-up with Dr. Corral at her primary care physician. She is planning to make an appointment with Dr. Bustamante's new associate. She was seen and examined by Dr. Quigley. Recommendation for lymphedema evaluation and treatment. Her also request that they give therapy to the cording of the axilla and treatment for range of motion of the left shoulder. She continues on anti-estrogen therapy. We asked her to return to our office in 1 year. She will call if she has a questions or concerns in the interim. Assessment & Plan (Attending) ADDENDUM: I agree with note created by Helen Clinton PA-C. I reviewed the patient's chart and information with her. I have examined and evaluated the patient. I reviewed relevant clinical information and answered the patient's and /or family's questions. ACID CHANGER Total Time In Follow-Up I spent 20 minutes speaking to the patient and performing examination. I spent 15 minutes reviewing information in completing this note. AK Total Time (Attending) In Follow-Up I spent 15 minutes examining and counseling the patient. ACID CHANGER Copy To Joao Bustamante M.D.; Tate Corral MD Problem Qualifiers (1) Breast cancer: Breast location: lower inner quadrant of breast Estrogen receptor status: positive Patient sex: female Laterality: left Qualified Codes: C50.312 - Malignant neoplasm of lower-inner quadrant of left female breast; Z17.0 - Estrogen receptor positive status [ER+]
== END | disposition home or self-care (01) ==
LOC: C.ONC 13:56
PROVIDERS: ATTEND Physician Assistant Medical
DX: Z08 Encounter for follow-up examination after completed treatment for malignant neoplasm (principal); Z92.3 Personal history of irradiation; Z85.3 Personal history of malignant neoplasm of breast

== ENCOUNTER → 2017-07-10 | Outpatient (CLI) | payer OTHER ==
[2017-07-10 14:36] LABS: BASO % 0.7 %; BASO ABS # 0.03 K/uL (0-0.2); EOS % 1.8 %; EOS ABS # 0.08 K/uL (0-0.5); HEMATOCRIT 42.6 % (37-47); HEMOGLOBIN 14.2 g/dL (12.0-16.0); LYMPH % 30.5 %; LYMPH ABS # 1.37 K/uL (1.2-3.4); MEAN CELL VOLUME 88.6 fL (80-100); MEAN CORPUSCULAR HEMOGLOBIN 29.5 pg (25-34); MEAN CORPUSCULAR HGB CONC 33.3 g/dl (32-36); MEAN PLATELET VOLUME 10.5 fL (7.4-10.4); MONO % 11.6 %; MONO ABS # 0.52 K/uL (0.11-0.59); NEUT % 55.4 %; NEUT ABS # 2.49 K/uL (1.4-6.5); PLATELET COUNT 239 K/uL (130-400); RED CELL DISTRIBUTION WIDTH CV 12.7 % (11.5-14.5); RED CELL DISTRIBUTION WIDTH SD 40.5 fL (36.4-46.3); WHITE BLOOD COUNT 4.49 K/uL (4.8-10.8)
[2017-07-10 14:45] LABS: ALBUMIN 4.1 gm/dl (3.4-5.0); ALT/SGPT 27 U/L (12-78); BLOOD UREA NITROGEN 15 mg/dl (7-18); CALCIUM 9.9 mg/dl (8.5-10.1); CARBON DIOXIDE 30 mmol/L (21-32); CREATININE 0.84 mg/dl (0.60-1.20); GLUCOSE 94 mg/dl (70-99); POTASSIUM 3.6 mmol/L (3.5-5.1); SODIUM 141 mmol/L (136-145)
[2017-07-10 14:47] LABS: ALKALINE PHOSPHATASE 88 U/L (45-117); AST/SGOT 23 U/L (15-37); TOTAL PROTEIN 7.2 gm/dl (6.4-8.2)
== END | disposition home or self-care (01) ==
LOC: C.LAB1850 12:42
PROVIDERS: ATTEND Internal Medicine Hematology & Oncology
DX: C50.212 Malignant neoplasm of upper-inner quadrant of left female breast (principal)

== ENCOUNTER → 2017-07-12 | Outpatient (CLI) | payer OTHER ==
--- NOTE | 2017-07-12 13:45 | MAMMOGRAPHY REPORT ---
BILATERAL DIGITAL DIAGNOSTIC MAMMOGRAM TOMOSYNTHESIS WITH CAD: 07/12/2017 CLINICAL HISTORY: History of left breast cancer status post lumpectomy June 2016. She also underw ent a repeat surgical excision February 2017 to remove a residual biopsy marker clip, with pathology at that time showing fat necrosis and other benign findings. The patient reports no current complai nts. TECHNIQUE: Breast tomosynthesis in addition to standard 2D mammography was performed. Current study was also evaluated with a Computer Aided Detection (CAD) system. Bilateral CC and MLO 2-D and tomosy nthesis images and spot magnification left CC and ML views were obtained. COMPARISON: Comparison is made to exams dated: 01/09/2017 mammogram, 06/26/2016 aspiration, 06/26/2016 ma mmogram, 06/26/2016 ultrasound biopsy, 06/19/2016 ultrasound, and 06/19/2016 mammogram - [facility]. BREAST COMPOSITION: There are scattered areas of fibroglandular density in both breasts. FINDINGS: There are expected post surgical changes in the left 12:00 posterior breast from prior lum pectomy, including density and architectural distortion as well as surgical clips at the lumpectomy b ed. Spot magnification views of the lumpectomy bed demonstrate 2 coarse benign dystrophic calcificat ions at the lumpectomy bed, without a suspicious mass or cluster of microcalcifications seen. Linear scar markers denote scars on the left breast. The remainder of both breasts are stable compared to prior exams, without suspicious masses, calcific ations, or areas of architectural distortion noted. Grouped calcifications within the right upper ou ter quadrant are stable; these were shown to layer on spot magnification views from the October 2014 exam and are consistent with benign milk of calcium. IMPRESSION: ACR-BI-RADS CATEGORY 3: PROBABLY BENIGN Expected post treatment changes in the left breast, without mammographic evidence of malignancy in ei ther breast. Recommend follow-up diagnostic tomosynthesis mammograms of the left breast in 6 months to reevaluate left breast posttreatment changes. The patient has been verbally notified of the results. Approximately 10% of breast cancers are not detected with mammography. A negative mammographic report should not delay biopsy if a clinically suggestive mass is present. Susu Jameson M.D. ah/:07/12/2017 11:54:34 Truck Driver Instructor: Josy LUIS)(M), [facility] letter sent: Personal History 3 BI-RADS Code: ACR-BI-RADS Category 3: Probably Benign
== END | disposition home or self-care (01) ==
LOC: C.MAMM 10:46
PROVIDERS: ATTEND Obstetrics & Gynecology
DX: Z09 Encounter for follow-up examination after completed treatment for conditions other than malignant neoplasm (principal); Z85.3 Personal history of malignant neoplasm of breast

== ENCOUNTER → 2017-10-12 | Outpatient (CLI) | payer OTHER ==
[2017-10-12 09:35] LABS: BASO % 0.5 %; BASO ABS # 0.02 K/uL (0-0.2); EOS % 3.1 %; EOS ABS # 0.12 K/uL (0-0.5); HEMATOCRIT 41.3 % (37-47); HEMOGLOBIN 13.9 g/dL (12.0-16.0); IG# 0.01 K/uL (0.00-0.02); LYMPH % 26.2 %; LYMPH ABS # 1.02 K/uL (1.2-3.4); MEAN CELL VOLUME 87.7 fL (80-100); MEAN CORPUSCULAR HEMOGLOBIN 29.5 pg (25-34); MEAN CORPUSCULAR HGB CONC 33.7 g/dl (32-36); MONO % 8.5 %; MONO ABS # 0.33 K/uL (0.11-0.59); NEUT % 61.4 %; PLATELET COUNT 205 K/uL (130-400); RED CELL DISTRIBUTION WIDTH CV 12.5 % (11.5-14.5); RED CELL DISTRIBUTION WIDTH SD 40.3 fL (36.4-46.3)
[2017-10-12 10:07] LABS: ALBUMIN 3.8 gm/dl (3.4-5.0); ALT/SGPT 26 U/L (12-78); AST/SGOT 22 U/L (15-37); BLOOD UREA NITROGEN 20 mg/dl (7-18); CALCIUM 9.5 mg/dl (8.5-10.1); CARBON DIOXIDE 31 mmol/L (21-32); CREATININE 0.92 mg/dl (0.60-1.20); GLUCOSE 75 mg/dl (70-99); POTASSIUM 3.4 mmol/L (3.5-5.1); SODIUM 142 mmol/L (136-145)
[2017-10-12 10:09] LABS: ALKALINE PHOSPHATASE 98 U/L (45-117); TOTAL PROTEIN 6.9 gm/dl (6.4-8.2)
== END | disposition home or self-care (01) ==
LOC: C.LAB1850 08:42
PROVIDERS: ATTEND Internal Medicine Hematology & Oncology
DX: C50.212 Malignant neoplasm of upper-inner quadrant of left female breast (principal)

== ENCOUNTER → 2018-01-15 | Outpatient (CLI) | payer BC, OTHER ==
[~2018-01-15] MED LIST changes: -ANAS1TAB19 PO; +ANAS1TAB59 PO
--- NOTE | 2018-01-15 15:23 | MAMMOGRAPHY REPORT ---
UNILATERAL LEFT DIGITAL DIAGNOSTIC MAMMOGRAM TOMOSYNTHESIS WITH CAD: 01/15/2018 CLINICAL HISTORY: 47-year-old woman with a personal history of left breast cancer status post lumpect clary and radiation therapy. She presents for continued close follow-up in the left breast after treatm ent. She reports a recent rib fracture in September 2017. TECHNIQUE: Left breast CC and MLO 2D and tomosynthesis images; spot magnification left CC and ML view s were obtained. Current study was also evaluated with a Computer Aided Detection (CAD) system. COMPARISON: Comparison is made to exams dated: 07/12/2017 mammogram, 01/09/2017 mammogram, 06/26/2016 ma mmogram, 06/19/2016 mammogram - [facility], and 10/20/2014 mammogram - [facility]. BREAST COMPOSITION: There are scattered areas of fibroglandular density in left breast. FINDINGS: A linear scar marker overlies the anterior upper inner left breast. There is skin irregula rity due to prior surgeries. Expected architectural distortion and surgical clips in the 12:00 poste rior left breast at the site of prior lumpectomy. 2 benign-appearing calcifications are seen at the surgical site, that appears similar to the prior June 2017 mammograms and most likely represent dy strophic calcification. No suspicious masses, asymmetries, unexpected architectural distortion or clu ster of microcalcifications is seen. IMPRESSION: ACR-BI-RADS CATEGORY 3: PROBABLY BENIGN Expected posttreatment changes in the left breast, without definite mammographic evidence of malignan cy. Another six-month close follow-up left diagnostic mammogram and possible ultrasound is recommend ed to ensure longer stability after treatment. Annual right mammography will also be due at that [facility]. These results and recommendations were discussed with the patient at the time of the exam. Some breast cancers are not detected with mammography. A negative mammographic report should not sabrina y biopsy if a clinically suggestive mass is present. Jocelyn Potter M.D. ay/:01/15/2018 09:02:42 Older Adult Social Work Specialist: Tori Goodman RT(R)(M), [facility] letter sent: Follow Up Recommended 3 BI-RADS Code: ACR-BI-RADS Category 3: Probably Benign
== END | disposition home or self-care (01) ==
LOC: C.MAMM 08:32
PROVIDERS: ATTEND Obstetrics & Gynecology
DX: R92.8 Other abnormal and inconclusive findings on diagnostic imaging of breast (principal)